=== PATIENT | male | born 1985 | race Caucasian/White ===

== ENCOUNTER 2018-07-31 11:18 | Emergency (ER) | payer SELFPAY ==
[~2018-07-31] VITALS: Ht 175.3 cm; Wt 97.1 kg
[2018-07-31 11:25] VITALS: Ht 175.3 cm; Wt 97.1 kg
[2018-07-31 12:01] LABS: CALCIUM 9.6 mg/dL (8.5-10.1); CARBON DIOXIDE 23.3 mmol/L (21-32); CHLORIDE SERUM 101 mmol/L (98-107); CREATININE SERUM 0.8 mg/dL (0.7-1.3); GFR1 > 60 mL/min; GLUCOSE SERUM 108 mg/dL (74-106); POTASSIUM SERUM 3.6 mmol/L (3.5-5.1); SODIUM SERUM 139 mmol/L (136-145)
[2018-07-31 12:02] LABS: BASOPHIL % 0.3 % (0-2); PLATELET COUNT 285 x10^3mcL (130-400); RED CELL DISTRIBUTION WIDTH 14.4 % (11.5-14.5)
[2018-07-31 12:06] LABS: ALBUMIN 4.5 g/dL (3.4-5.0); ALKALINE PHOSPHATASE 102 U/L (46-116); ALT/SGPT 46 U/L (16-63); AST/SGOT 17 U/L (15-37); BILIRUBIN TOTAL 0.6 mg/dL (0.20-1.00)
[2018-07-31 12:07] LABS: TOTAL PROTEIN, SERUM 8.3 g/dL (6.4-8.2)
[2018-07-31 14:21] VITALS: BP 145/89
[2018-07-31 14:54] LABS: AMPHETAMINE QUAL UR NONE DETECTED (See below)
== END 2018-07-31 14:21 | disposition home or self-care (01) ==
LOC: ED 11:18
DX: T40.7X5A Adverse effect of cannabis (derivatives), initial encounter (principal); T40.5X5A Adverse effect of cocaine, initial encounter; F17.210 Nicotine dependence, cigarettes, uncomplicated; R07.89 Other chest pain; Z90.89 Acquired absence of other organs; Y92.89 Other specified places as the place of occurrence of the external cause
CPT/HCPCS: 99406; J1885; J2060; J7030